=== PATIENT | female | born 1955 | race Caucasian/White ===

== ENCOUNTER 2021-07-28 15:37 | Emergency (ER) | payer BC | END 2021-07-28 16:27 | disposition home or self-care (01) | LOC: LB.ED 15:37 | DX: S69.92XA Unspecified injury of left wrist, hand and finger(s), initial encounter (principal); W01.0XXA Fall on same level from slipping, tripping and stumbling without subsequent striking against object, initial encounter | CPT/HCPCS: 73110-LT; 99281; 99283-25 ==

== ENCOUNTER 2023-08-18 09:58 | Emergency (ER) | payer BC ==
[2023-08-18] MEDS ORDERED: Sodium Chloride 0.9% 10 ML Syringe FLUSH PRN (10:18)
[2023-08-18 10:22] LABS: BASOPHILS ABSOLUTE AUTO 0.03 K/uL (0.02-0.10); BASOPHILS PERCENT AUTO 0.5 % (0.0-0.5); EOSINOPHILS ABSOLUTE AUTO 0.08 K/uL (0.04-0.40); EOSINOPHILS PERCENT AUTO 1.2 % (1.0-5.0); HEMATOCRIT 41.4 % (37.0-47.0); LYMPHOCYTES PERCENT AUTO 30.8 % (20.0-40.0); MEAN CORPUSCULAR HEMOGLOBIN 31.7 pg (27.0-32.0); MEAN CORPUSCULAR HGB CONC 33.8 g/dL (31.0-35.0); MEAN CORPUSCULAR VOLUME 94 fL (76-96); MEAN PLATELET VOLUME 9.9 fL (6.0-10.0); MONOCYTES ABSOLUTE AUTO 0.39 K/uL (0.20-0.80); NEUTROPHILS PERCENT AUTO 61.5 % (45.0-70.0); PLATELET COUNT,PLT 246 K/uL (150-500); RED BLOOD CELL COUNT 4.41 M/uL (3.80-5.80); WHITE BLOOD CELL COUNT,WBC 6.5 K/uL (4.0-11.0)
[2023-08-18 10:47] LABS: ALBUMIN 3.7 g/dL (3.4-5.0); ANION GAP 15.1 mmol/L (5.0-15.0); BILIRUBIN TOTAL 0.5 mg/dL (0.0-1.0); BUN/CREATININE RATIO 25.9 (6-25); CALCIUM 8.5 mg/dL (8.5-10.1); CREATININE 0.85 mg/dL (0.55-1.02); EST CRCL DRUG DOSING (CG) 61.77 mL/min; POTASSIUM,K 4.1 mmol/L (3.5-5.1); PROTEIN TOTAL,TP 7.4 g/dL (6.4-8.2); TROPONIN I HIGH SENSITIVITY 8.7 pg/ml (<=60.4)
== END 2023-08-18 11:35 | disposition home or self-care (01) ==
LOC: LB.ED 09:58
DX: R07.2 Precordial pain (principal)
CPT/HCPCS: 36415; 80053; 84484; 85025; 93005; 99285

== ENCOUNTER 2023-10-31 07:10 | Emergency (ER) | payer BC ==
[2023-10-31] MEDS: Sodium Chloride 0.9% 1,000 ML IV ONE (07:46)
[2023-10-31] MEDS: Diltiazem 25 MG/5 ML SDV IVPUSH ONE (08:00)
[2023-10-31 08:06] LABS: BASOPHILS ABSOLUTE AUTO 0.04 K/uL (0.02-0.10); BASOPHILS PERCENT AUTO 0.8 % (0.0-0.5); EOSINOPHILS ABSOLUTE AUTO 0.07 K/uL (0.04-0.40); EOSINOPHILS PERCENT AUTO 1.3 % (1.0-5.0); HEMATOCRIT 39.8 % (37.0-47.0); HEMOGLOBIN 13.4 g/dL (11.5-16.5); LYMPHOCYTES ABSOLUTE AUTO 1.72 K/uL (1.50-4.00); LYMPHOCYTES PERCENT AUTO 32.5 % (20.0-40.0); MEAN CORPUSCULAR HEMOGLOBIN 31.9 pg (27.0-32.0); MEAN CORPUSCULAR HGB CONC 33.7 g/dL (31.0-35.0); MEAN CORPUSCULAR VOLUME 95 fL (76-96); MEAN PLATELET VOLUME 9.7 fL (6.0-10.0); MONOCYTES ABSOLUTE AUTO 0.35 K/uL (0.20-0.80); MONOCYTES PERCENT AUTO 6.6 % (3.0-10.0); NEUTROPHILS ABSOLUTE AUTO 3.11 K/uL (2.00-7.50); NEUTROPHILS PERCENT AUTO 58.8 % (45.0-70.0); PLATELET COUNT,PLT 225 K/uL (150-500); RED CELL DISTRIBUTION WIDTH 13.1 % (11.0-16.0); WHITE BLOOD CELL COUNT,WBC 5.3 K/uL (4.0-11.0)
[2023-10-31 08:28] LABS: PTT,PARTIAL THROMBOPLSTIN TIME 24.9 SECONDS (24.4-33.2)
[2023-10-31 08:30] LABS: PROTHROMBIN TIME 10.4 sec (9.0-11.5)
[2023-10-31 08:37] LABS: ALBUMIN 3.4 g/dL (3.4-5.0); BILIRUBIN TOTAL 0.4 mg/dL (0.0-1.0); CALCIUM 8.2 mg/dL (8.5-10.1); CARBON DIOXIDE,CO2 27.9 mmol/L (21.0-32.0); CREATININE 0.91 mg/dL (0.55-1.02); EST CRCL DRUG DOSING (CG) 57.7 mL/min; POTASSIUM,K 3.9 mmol/L (3.5-5.1); PROTEIN TOTAL,TP 6.7 g/dL (6.4-8.2); TSH ULTRASENSITIVE 1.617 uIU/mL (0.358-3.740)
[2023-10-31] MEDS ORDERED: Diltiazem 120 MG Cap.CD ONE (08:51)
[2023-10-31] MEDS: Diltiazem 120 MG Cap.CD PO ONE (08:55)
== END 2023-10-31 09:05 | disposition home or self-care (01) ==
LOC: LB.ED 07:10
DX: I48.20 Chronic atrial fibrillation, unspecified (principal); I10 Essential (primary) hypertension; Z90.49 Acquired absence of other specified parts of digestive tract; Z88.8 Allergy status to other drugs, medicaments and biological substances
CPT/HCPCS: 36415; 80053; 84443; 84484; 85025; 85610; 85730; 93005; 96361; 96374; 99285-25; A9270-GY; J3490; J7030